=== PATIENT | male | born 2000 | race Caucasian/White ===

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

== ENCOUNTER 2022-09-16 10:45 | Emergency (ER) | payer OTHER ==
[~2022-09-16] VITALS: Ht 172 cm; Wt 101.0 kg
[~2022-09-16 10:45] MED LIST: ACHD5005 PO; DOCU-143 PO
--- NOTE | 2022-09-16 11:24 | ED Abdominal Pain ---
General Chief Complaint: Abdominal/GI Problems Stated Complaint: ABD PAIN Nursing Triage Note: woke up this am with diarrhea and nausea. History of Present Illness Date Seen by Provider: Sep 16, 2022 Time Seen by Provider: 11:20 Initial Comments Patient reports that he woke up around 7am today with abdominal pain, nausea, and diarrhea. Reports that he is able to keep stuff down without vomiting but it is coming back out as diarrhea. Denies fever or recent sick contacts that he is aware of. Denies cough or congestion. Has not taken anything for his symptoms. Timing/Duration: 4-6 Hours Severity/Quality: Moderate Location: Generalized Abdomen Activities at Onset: None Modifying Factors: Worsens With Palpation; Improves With Resting Allergies and Home Medications Allergies Coded Allergies: No Known Drug Allergies (Unverified , 09/16/22) Patient Home Medication List Home Medication List Reviewed: Yes Docusate Sodium (Colace) 100 Mg Capsule, 100 MG PO BID Prescribed by: TRICE MERRILL on 12/23/21 0913 Hydrocodone/Acetaminophen (Hydrocodone-Acetamin 5-325 mg) 1 Each Tablet, 1 EACH PO Q4H PRN for PAIN-MODERATE (5-7) Prescribed by: KENNEDI SINGLETON on 12/23/21 0914 Ondansetron (Ondansetron Odt) 4 Mg Tab.rapdis, 4 MG PO Q6H PRN for NAUSEA/VOMITING Prescribed by: Neeru Sosa on 09/16/22 1248 Review of Systems Review of Systems Constitutional: No chills, No dizziness, No fever Respiratory: Denies Cough, Denies Shortness of Air, Denies Stridor, Denies Wheezing Cardiovascular: Denies Chest Pain Gastrointestinal: Abdominal Pain; Denies Constipated; Diarrhea, Nausea; Denies Vomiting Genitourinary: Denies Burning, Denies Frequency, Denies Pain Musculoskeletal: No back pain, No muscle cramps Skin: no symptoms reported Psychiatric/Neurological: Denies Headache, Denies Numbness All Other Systems Reviewed Negative Unless Noted: Yes Past Gjmqejj-Ahzhqn-Qejown Hx Patient Social History Tobacco Use?: No Use of E-Cig and/or Vaping dev: Yes E-Cig or Vaping type used: Nicotine, Marijuana Use of E-Cig and/or Vaping Cristino: Current Everyday User Substance type: Marijuana Substance frequency: Once in a while Alcohol Use?: No Pt feels they are or have been: No Immunizations Up To Date First/Initial COVID19 Vaccinat: 2020 Second COVID19 Vaccination Tru: 2020 COVID19 Vaccine [employer]: hiral Seasonal Allergies Seasonal Allergies: No Past Medical History Surgery/Hospitalization HX: allergies- inhaler Surgeries: No Respiratory: Yes (MILD EXERCISE INDUCED ASTHMA) Asthma Currently Using CPAP: No Currently Using BIPAP: No Cardiac: No Neurological: No Genitourinary: No Gastrointestinal: No Musculoskeletal: No Endocrine: No HEENT: No Cancer: No Psychosocial: No Integumentary: No Blood Disorders: No Family Medical History Reviewed Nursing Family Hx Cancer Physical Exam Vital Signs Vital Signs - First Documented 09/16/22 11:05 Temp 36.4 Pulse 88 Resp 18 B/P (MAP) 145/106 (119) Pulse Ox 97 O2 Delivery Room Air Capillary Refill : Less Than 3 Seconds Height/Weight/BMI Height: '" Weight: lbs. oz. kg; 34.00 BMI Method: General Appearance: WD/WN, no apparent distress Neck: non-tender, full range of motion, supple Respiratory: chest non-tender, lungs clear, normal breath sounds, no respiratory distress, no accessory muscle use Cardiovascular: regular rate, rhythm, no edema Gastrointestinal: normal bowel sounds, non tender, soft; No distended, No guarding, No rebound Extremities: normal range of motion, non-tender, normal inspection Neurologic/Psychiatric: alert, normal mood/affect, oriented x 3 Skin: normal color, warm/dry Progress/Results/Core Measures Results/Orders Lab Results Laboratory Tests Test 09/16/22 11:28 09/16/22 12:08 Range/Units White Blood Count 12.4 H 4.3-11.0 10^3/uL Red Blood Count 5.63 H 4.30-5.52 10^6/uL Hemoglobin 16.1 13.3-17.7 g/dL Hematocrit 48 40-54 % Mean Corpuscular Volume 85 80-99 fL Mean Corpuscular Hemoglobin 29 25-34 pg Mean Corpuscular Hemoglobin Concent 34 32-36 g/dL Red Cell Distribution Width 12.8 10.0-14.5 % Platelet Count 377 130-400 10^3/uL Mean Platelet Volume 10.0 9.0-12.2 fL Immature Granulocyte % (Auto) 1 % Neutrophils (%) (Auto) 68 42-75 % Lymphocytes (%) (Auto) 19 12-44 % Monocytes (%) (Auto) 6 0-12 % Eosinophils (%) (Auto) 6 0-10 % Basophils (%) (Auto) 1 0-10 % Neutrophils # (Auto) 8.4 H 1.8-7.8 10^3/uL Lymphocytes # (Auto) 2.3 1.0-4.0 10^3/uL Monocytes # (Auto) 0.7 0.0-1.0 10^3/uL Eosinophils # (Auto) 0.8 H 0.0-0.3 10^3/uL Basophils # (Auto) 0.1 0.0-0.1 10^3/uL Immature Granulocyte # (Auto) 0.1 0.0-0.1 10^3/uL Sodium Level 138 135-145 MMOL/L Potassium Level 4.6 3.6-5.0 MMOL/L Chloride Level 104 98-107 MMOL/L Carbon Dioxide Level 23 21-32 MMOL/L Anion Gap 11 5-14 MMOL/L Blood Urea Nitrogen 7 7-18 MG/DL Creatinine 0.85 0.60-1.30 MG/DL Estimat Glomerular Filtration Rate 128 BUN/Creatinine Ratio 8 Glucose Level 93 70-105 MG/DL Calcium Level 10.1 8.5-10.1 MG/DL Corrected Calcium 8.5-10.1 MG/DL Total Bilirubin 0.9 0.1-1.0 MG/DL Aspartate Amino Transf (AST/SGOT) 48 H 5-34 U/L Alanine Aminotransferase (ALT/SGPT) 103 H 0-55 U/L Alkaline Phosphatase 52 40-136 U/L Total Protein 7.8 6.4-8.2 GM/DL Albumin 4.9 H 3.2-4.5 GM/DL Lipase 14 8-78 U/L Urine Color YELLOW Urine Clarity CLEAR Urine pH 6.0 5-9 Urine Specific [place] >=1.030 1.016-1.022 Urine Protein NEGATIVE NEGATIVE Urine Glucose (UA) NEGATIVE NEGATIVE Urine Ketones NEGATIVE NEGATIVE Urine Nitrite NEGATIVE NEGATIVE Urine Bilirubin NEGATIVE NEGATIVE Urine Urobilinogen 0.2 < = 1.0 MG/DL Urine Leukocyte Esterase NEGATIVE NEGATIVE Urine RBC (Auto) NEGATIVE NEGATIVE Urine RBC RARE /HPF Urine WBC RARE /HPF Urine Squamous Epithelial Cells RARE /HPF Urine Crystals NONE /LPF Urine Bacteria NEGATIVE /HPF Urine Casts NONE /LPF Urine Mucus NEGATIVE /LPF Urine Culture Indicated NO My Orders Orders - NEERU SOSA APRN Cbc With Automated Diff (09/16/22 11:24) Comprehensive Metabolic Panel (09/16/22 11:24) Lipase (09/16/22 11:24) Ua Culture If Indicated (09/16/22 11:24) Ns Iv 1000 Ml (Sodium Chloride 0.9%) (09/16/22 11:30) Ondansetron Injection (Zofran Injectio (09/16/22 11:30) Medications Given in ED Current Medications Medications Dose Ordered Sig/Geni Route Start Time Stop Time Status Last Admin Dose Admin Ondansetron HCl 4 mg ONCE ONCE IVP 09/16/22 11:30 09/16/22 11:31 DC 09/16/22 11:41 4 MG Vital Signs/I&O 09/16/22 09/16/22 11:05 12:55 Temp 36.4 Pulse 88 71 Resp 18 18 B/P (MAP) 145/106 (119) 149/90 Pulse Ox 97 98 O2 Delivery Room Air Room Air Blood Pressure Mean: 119 Progress Progress Note : Progress Note Patient presents to the emergency room for nausea, abdominal pain and diarrhea that started this AM. Will check labs and give fluids. 1245: Discussed with patient results of labs and he verbalized understanding along with reasons to return to the ER. WBC count is slightly elevated. No signs of acute abdomen appreciated on exam. Liver enzymes are elevated. Consistent with previous enzymes being elevated. Will send home with Jumanayordy. Reports that he is feeling better at this time. Reasons to return to the ER were discussed with patient and he verbalized understanding. Departure Impression Primary Impression: Gastroenteritis Disposition: HOME, SELF-CARE Condition: Stable Departure-Patient Inst. Decision time for Depature: 12:47 Referrals: [facility] (PCP/Family) Primary Care Physician Patient Instructions: Viral Gastroenteritis in Adults Add. Discharge Instructions: 1. Home and rest. 2. Push fluids. 3. Alternate Tylenol/Ibuprofen as needed for pain. 4. Follow up with PCP as needed. 5. [place] diet and advance as tolerated. 6. Zofran as needed for nausea. 7. Return here if worse or concerns. All discharge instructions reviewed with patient and/or family. Voiced understanding. Scripts Ondansetron (Ondansetron Odt) 4 Mg Tab.rapdis 4 MG PO Q6H PRN for NAUSEA/VOMITING, #8 TAB 0 Refills Prov: NEERU SOSA APRN 09/16/22 Work/School Note: Work Release Form Date Seen in the Emergency Department: Sep 16, 2022 Return to Work: Sep 17, 2022 Restrictions: No Restrictions NEERU SOSA APRN Sep 16, 2022 11:24
[2022-09-16] MEDS ORDERED: NS IV 1000 ML 1,000 ML IV SCH (11:30)
[2022-09-16] MEDS ORDERED: ONDANSETRON 4 MG/2 ML (SDV) Z0FRAN IVP ONE (11:30)
[2022-09-16 11:45] LABS: BASOPHILS # (AUTO) 0.1 10^3/uL (0.0-0.1); BASOPHILS % (AUTO) 1 % (0-10); EOSINOPHILS # (AUTO) 0.8 10^3/uL (0.0-0.3); EOSINOPHILS % (AUTO) 6 % (0-10); HEMATOCRIT 48 % (40-54); HEMOGLOBIN 16.1 g/dL (13.3-17.7); LYMPHOCYTES # (AUTO) 2.3 10^3/uL (1.0-4.0); LYMPHOCYTES % (AUTO) 19 % (12-44); MEAN CORPUSCULAR HEMOGLOBIN 29 pg (25-34); MEAN CORPUSCULAR HGB CONC 34 g/dL (32-36); MEAN CORPUSCULAR VOLUME 85 fL (80-99); MONOCYTES # (AUTO) 0.7 10^3/uL (0.0-1.0); MONOCYTES % (AUTO) 6 % (0-12); NEUTROPHILS # (AUTO) 8.4 10^3/uL (1.8-7.8); NEUTROPHILS % (AUTO) 68 % (42-75); PLATELET COUNT 377 10^3/uL (130-400); WHITE BLOOD COUNT 12.4 10^3/uL (4.3-11.0)
[2022-09-16 12:00] LABS: ALBUMIN 4.9 GM/DL (3.2-4.5); CHLORIDE 104 MMOL/L (98-107); POTASSIUM 4.6 MMOL/L (3.6-5.0); SODIUM 138 MMOL/L (135-145)
[2022-09-16 12:02] LABS: CALCIUM 10.1 MG/DL (8.5-10.1)
[2022-09-16 12:03] LABS: GLUCOSE 93 MG/DL (70-105); TOTAL PROTEIN 7.8 GM/DL (6.4-8.2)
[2022-09-16 12:04] LABS: CARBON DIOXIDE 23 MMOL/L (21-32)
[2022-09-16 12:05] LABS: BILIRUBIN,TOTAL 0.9 MG/DL (0.1-1.0)
[2022-09-16 12:06] LABS: ALKALINE PHOSPHATASE 52 U/L (40-136)
[2022-09-16 12:07] LABS: CREATININE SERUM 0.85 MG/DL (0.60-1.30); GFR ESTIMATED 128
[2022-09-16 12:08] LABS: BUN/CREATININE RATIO 8
[2022-09-16 12:09] LABS: ALANINE AMINOTRANSFERASE 103 U/L (0-55)
[2022-09-16 12:10] LABS: LIPASE 14 U/L (8-78)
[2022-09-16 12:19] LABS: BILIRUBIN,URINE NEGATIVE (NEGATIVE); CLARITY,URINE CLEAR; COLOR,URINE YELLOW; GLUCOSE, URINE (UA) NEGATIVE (NEGATIVE); KETONES,URINE NEGATIVE (NEGATIVE); LEUKOCYTE ESTERASE ,URINE NEGATIVE (NEGATIVE); NITRITE,URINE NEGATIVE (NEGATIVE); PROTEIN,URINE NEGATIVE (NEGATIVE)
[2022-09-16 12:33] LABS: BACTERIA,URINE NEGATIVE /HPF; RBC,URINE RARE /HPF; SQUAMOUS EPITHELIAL CELL,UR RARE /HPF; WBC,URINE RARE /HPF
[2022-09-16] MEDS ORDERED: ONDA4TAB11 PO (12:48)
[2022-09-16 12:55] VITALS: BP 149/90
== END 2022-09-16 12:55 | disposition home or self-care (01) ==
LOC: EDUNIT# 10:45 → ER 10:53
DX: K52.9 Noninfective gastroenteritis and colitis, unspecified (principal); F17.290 Nicotine dependence, other tobacco product, uncomplicated
CPT/HCPCS: 36415; 80053; 81000; 83690; 85025